=== PATIENT | male | born 1975 | race Hispanic/Latino ===

== ENCOUNTER 2018-12-20 13:01 | Emergency (ER) | payer OTHER ==
[2018-12-20] MEDS ORDERED: NA CHLORIDE 0.9% 1,000 ML ONE (14:39)
[2018-12-20 14:44] LABS: Absolute Lymphocytes (CBC) 1.7 K/uL (0.7-4.9); Basophils % 0.7 % (0-1.3); Hematocrit 36.5 % (39.6-49.0); Lymphocytes % 18.7 % (15.3-44.8); MPV 10.4 fL (7.6-11.3); RBC Red Blood Cell Count 4.12 M/uL (4.33-5.43)
[2018-12-20 14:47] LABS: ALT/SGPT 21 U/L (12-78); AST/SGOT 16 U/L (15-37); Albumin 3.4 g/dL (3.4-5.0); Alkaline Phosphatase 71 U/L (45-117); BUN Blood Urea Nitrogen 16 mg/dL (7-18); Bicarbonate 28 mmol/L (21-32); Bilirubin Direct 0.1 mg/dL (0-0.2); Bilirubin Total 0.5 mg/dL (0.2-1.0); Glucose Level 188 mg/dL (74-106); Magnesium 1.6 mg/dL (1.8-2.4); NT PRO-BNP 29 pg/mL (<125); Potassium 3.8 mmol/L (3.5-5.1); Protein, Total 7.2 g/dL (6.4-8.2); Sodium Level 136 mmol/L (136-145); Troponin (Emerg Dept Use Only) < 0.02 ng/mL (0.0-0.045)
--- NOTE | 2018-12-20 15:07 | EKG ---
Test Date: 2018-12-20 Test Time: 14:32:20 Counter Help: CRUZ MEASUREMENT RESULTS: Intervals: Rate: 77 UT: 140 QRSD: 86 QT: 398 QTc: 450 [place]: P: 56 UT: 140 QRS: 56 T: 23 INTERPRETIVE STATEMENTS: Normal sinus rhythm Normal ECG Compared to ECG 11/03/2003 22:35:00 No significant changes Electronically Signed On 12-20-18 15:06:46 DOUBLE ENDING MACHINE OPERATOR by Vinicius Singh
--- NOTE | 2018-12-20 15:08 | ER ---
Nurse's Notes [facility] Name: Ivan John Age: 43 yrs Sex: Male : 1975 Arrival Date: 12/20/2018 Time: 13:05 Bed 24 Private MD: Ronnie Melo R Diagnosis: Adverse effect of caffeine;Essential (primary) hypertension;Hypomagnesemia Presentation: 12/20 13:07 Presenting complaint: Intermittent dizziness, anxiety, nausea, and SOB x 2 hrs. Pt is 1 hb week s/p hernia repair by Dr. Castellanos. Transition of care: patient was not received from another setting of care. Onset of symptoms was December 20, 2018. Risk Assessment: Do you want to hurt yourself or someone else? Patient reports no desire to harm self or others. Care prior to arrival: None. 13:07 Method Of Arrival: Ambulatory hb 13:07 Acuity: TREVOR 3 hb 13:28 Initial Sepsis Screen: Does the patient meet any 2 criteria? No. Patient's initial ca1 sepsis screen is negative. Does the patient have a suspected source of infection? No. Patient's initial sepsis screen is negative. Historical: - Allergies: 13:11 No Known Allergies; hb - Home Meds: 13:11 metformin 1,000 mg Oral tab 1 tab 2 times per day [Active]; lisinopril 40 mg Oral tab 1 hb tab once daily [Active]; amlodipine 5 mg tab 1 tab once daily [Active]; glimepiride 1 mg Oral tab 1 tab once daily [Active]; atorvastatin 10 mg oral tab 1 tab once daily [Active]; Flomax 0.4 mg Oral cp24 1 cap once daily [Active]; - PMHx: 13:11 Hypertension; hb - PSHx: 13:11 Hernia repair; hb - Immunization history:: Adult Immunizations up to date. - Social history:: Smoking status: Patient/guardian denies using tobacco. - Ebola Screening: : No symptoms or risks identified at this time. Screenin:19 Abuse screen: Denies threats or abuse. Denies injuries from another. Nutritional ca1 screening: No deficits noted. Tuberculosis screening: No symptoms or risk factors identified. Fall Risk IV access (20 points). Assessment: 13:19 General: Appears in no apparent distress. comfortable, Behavior is calm, cooperative, ca1 appropriate for age. Pain: Denies pain. Neuro: Level of Consciousness is awake, alert, obeys commands, Oriented to person, place, time, situation, Appropriate for age Valver are equal bilaterally Moves all extremities. Gait is steady, Speech is normal, Facial symmetry appears normal, Reports dizziness, since 2 hours ago. Neuro: Reports a syncopal episode. Cardiovascular: Heart tones S1 S2 present Capillary refill < 3 seconds Patient's skin is warm and dry. Rhythm is sinus rhythm. Respiratory: Reports shortness of breath at rest Airway is patent Respiratory effort is even, unlabored, Respiratory pattern is regular, symmetrical, Breath sounds are clear bilaterally. Denies cough. GI: Abdomen is round non-distended, dressing on umbilical area. Pt reports to have had hernia repair last . Dressing is dry and intact. Pt denies redness, swelling, tenderness or drainage on incision site. Bowel sounds present X 4 quads. Abd is soft and non tender X 4 quads. : No deficits noted. No signs and/or symptoms were reported regarding the genitourinary system. EENT: No deficits noted. No signs and/or symptoms were reported regarding the EENT system. Derm: Skin is intact, is healthy with good turgor, Skin is pink, warm \T\ dry. Musculoskeletal: Circulation, motion, and sensation intact. Capillary refill < 3 seconds, Range of motion: intact in all extremities. 14:20 Reassessment: Patient appears in no apparent distress at this time. Patient and/or ca1 family updated on plan of care and expected duration. Pain level reassessed. Patient is alert, oriented x 3, equal unlabored respirations, skin warm/dry/pink. 15:45 Reassessment: Patient appears in no apparent distress at this time. [place] and ca1 [place]ice served with medication. Tolerated well. Vital Signs: 13:08 BP 204 / 92; Pulse 92; Resp 20; Temp 97.9; Pulse Ox 100% on R/A; Weight 98.88 kg; hb Height 5 ft. 4 in. (162.56 cm); Pain 0/10; 13:19 BP 152 / 74; Pulse 84; Resp 19; Pulse Ox 100% on R/A; ca1 14:20 BP 138 / 77; Pulse 85; Resp 17 S; Pulse Ox 99% on R/A; ca1 15:30 BP 134 / 79; Pulse 86; Resp 17 S; Pulse Ox 100% on R/A; ca1 13:08 Body Mass Index 37.42 (98.88 kg, 162.56 cm) hb ED Course: 13:05 Patient arrived in ED. mr 13:06 Ronnie Melo MD is Private Physician. mr 13:08 Triage completed. hb 13:08 Arm band placed on. hb 13:14 Rhiannon Muro, PRASHANTH is Primary Nurse. ca1 13:18 Cory Tavera PA is PHCP. jr8 13:18 Travon Nelson MD is Attending Physician. jr8 13:19 Patient has correct armband on for positive identification. Placed in gown. Bed in low ca1 position. Call light in reach. Side rails up X 1. traffic engineering director on. Pulse ox on. NIBP on. 13:19 No provider procedures requiring assistance completed. ca1 13:28 Inserted saline lock: 20 gauge in right antecubital area, using aseptic technique. ca1 Blood collected. 14:38 EKG done, by public health technician. reviewed by Cory JANE. 3 15:07 Ronnie Melo MD is Referral Physician. jr8 15:55 IV discontinued, intact, bleeding controlled, No redness/swelling at site. Pressure ca1 dressing applied. Administered Medications: 14:40 Drug: NS 0.9% 1000 ml Route: IV; Rate: 1000 ml; Site: right antecubital; ca1 15:40 Follow up: Response: No adverse reaction; IV Status: Completed infusion; IV Intake: ca1 1000ml 15:50 Drug: Magnesium Oxide 400 mg Route: PO; ca1 15:58 Follow up: Response: Medication administered at discharge. ca1 Intake: 15:40 IV: 1000ml; Total: 1000ml. ca1 Outcome: 15:07 Discharge ordered by . jr8 15:55 Discharged to home ambulatory, with significant other. ca1 15:55 Condition: stable 15:55 Discharge instructions given to patient, Instructed on discharge instructions, follow up and referral plans. Demonstrated understanding of instructions, follow-up care. 16:01 Patient left the ED. ca1 Signatures: Aviva Nelson mr Cory Tavera PA PA jr8 Aaliyah Stauffer RN RN Erin Santana 3 Rhiannon Muro RN RN ca1 Corrections: (The following items were deleted from the chart) 13:15 13:07 Presenting complaint: Intermittent dizziness and SOB x 2 hrs. Also c/o nausea and hb anxiety. hb 13:29 13:19 Respiratory: Reports shortness of breath at rest Airway is patent Respiratory ca1 effort is even, unlabored, Respiratory pattern is regular, symmetrical, Breath sounds are clear bilaterally. ca1
--- NOTE | 2018-12-20 15:09 | EDPHYS ---
Physician Documentation [facility] Name: Ivan John Age: 43 yrs Sex: Male : 1975 Arrival Date: 12/20/2018 Time: 13:05 Bed 24 Private MD: Ronnie Melo R ED Physician Travon Nelson HPI: 12/20 14:08 This 43 yrs old Male presents to ER via Ambulatory with complaints of jr8 Dizziness, Nausea. 14:08 The patient presents with dizziness. Onset: The symptoms/episode began/occurred jr8 acutely, today. Context: occurred at work, occurred while the patient was at rest. Modifying factors: The symptoms are alleviated by nothing, the symptoms are aggravated by nothing. Associated signs and symptoms: Pertinent positives: nausea, palpitations. Severity of symptoms: At their worst the symptoms were moderate in the emergency department the symptoms have improved moderately. Patient's baseline: Neuro: alert and fully oriented, Motor: no deficits, Ambulation: walks without assistance, Speech: normal. The patient has not experienced similar symptoms in the past. The patient has not recently seen a physician. Patient stated that he normally does not drink a lot of coffee. Since it has been cold outside has been drinking more. Stated that today had 3 twenty oz cups. While in meeting started to feel anxious, dizzy, and nauseated . Historical: - Allergies: 13:11 No Known Allergies; hb - Home Meds: 13:11 metformin 1,000 mg Oral tab 1 tab 2 times per day [Active]; lisinopril 40 mg Oral tab 1 hb tab once daily [Active]; amlodipine 5 mg tab 1 tab once daily [Active]; glimepiride 1 mg Oral tab 1 tab once daily [Active]; atorvastatin 10 mg oral tab 1 tab once daily [Active]; Flomax 0.4 mg Oral cp24 1 cap once daily [Active]; - PMHx: 13:11 Hypertension; hb - PSHx: 13:11 Hernia repair; hb - Immunization history:: Adult Immunizations up to date. - Social history:: Smoking status: Patient/guardian denies using tobacco. - Ebola Screening: : No symptoms or risks identified at this time. ROS: 14:08 Eyes: Negative for injury, pain, redness, and discharge, ENT: Negative for injury, jr8 pain, and discharge, Neck: Negative for injury, pain, and swelling, Respiratory: Negative for shortness of breath, cough, wheezing, and pleuritic chest pain, Back: Negative for injury and pain, MS/Extremity: Negative for injury and deformity, Skin: Negative for injury, rash, and discoloration. 14:08 Cardiovascular: Positive for palpitations, Negative for chest pain, edema, orthopnea, paroxysmal nocturnal dyspnea. 14:08 Abdomen/GI: Positive for nausea, Negative for abdominal pain, vomiting, diarrhea, constipation, abdominal cramps, abdominal distension. 14:08 Neuro: Positive for dizziness, Negative for altered mental status, gait disturbance, headache, hearing loss, loss of consciousness, numbness, seizure activity, speech changes, syncope, near syncope, tingling, tinnitus, tremor, visual changes, weakness. Exam: 14:08 Eyes: Pupils equal round and reactive to light, extra-ocular motions intact. Lids and jr8 lashes normal. Conjunctiva and sclera are non-icteric and not injected. Cornea within normal limits. Periorbital areas with no swelling, redness, or edema. ENT: Nares patent. No nasal discharge, no septal abnormalities noted. Tympanic membranes are normal and external auditory canals are clear. Oropharynx with no redness, swelling, or masses, exudates, or evidence of obstruction, uvula midline. Mucous membranes moist. Neck: Trachea midline, no thyromegaly or masses palpated, and no cervical lymphadenopathy. Supple, full range of motion without nuchal rigidity, or vertebral point tenderness. No Meningismus. Cardiovascular: Regular rate and rhythm with a normal S1 and S2. No gallops, murmurs, or rubs. Normal PMI, no JVD. No pulse deficits. Respiratory: Lungs have equal breath sounds bilaterally, clear to auscultation and percussion. No rales, rhonchi or wheezes noted. No increased work of breathing, no retractions or nasal flaring. Abdomen/GI: Soft, non-tender, with normal bowel sounds. No distension or tympany. No guarding or rebound. No evidence of tenderness throughout. Back: No spinal tenderness. No costovertebral tenderness. Full range of motion. Skin: Warm, dry with normal turgor. Normal color with no rashes, no lesions, and no evidence of cellulitis. MS/ Extremity: Pulses equal, no cyanosis. Neurovascular intact. Full, normal range of motion. Neuro: Awake and alert, GCS 15, oriented to person, place, time, and situation. Cranial nerves II-XII grossly intact. Motor strength 5/5 in all extremities. Sensory grossly intact. Cerebellar exam normal. Normal gait. Vital Signs: 13:08 BP 204 / 92; Pulse 92; Resp 20; Temp 97.9; Pulse Ox 100% on R/A; Weight 98.88 kg; hb Height 5 ft. 4 in. (162.56 cm); Pain 0/10; 13:19 BP 152 / 74; Pulse 84; Resp 19; Pulse Ox 100% on R/A; ca1 14:20 BP 138 / 77; Pulse 85; Resp 17 S; Pulse Ox 99% on R/A; ca1 15:30 BP 134 / 79; Pulse 86; Resp 17 S; Pulse Ox 100% on R/A; ca1 13:08 Body Mass Index 37.42 (98.88 kg, 162.56 cm) hb MDM: 13:48 Patient medically screened. [facility] 15:06 Data reviewed: vital signs, nurses notes, lab test result(s), EKG. Data interpreted: [facility] Pulse oximetry: on room air is 99 %. Interpretation: normal. Counseling: I had a detailed discussion with the patient and/or guardian regarding: the historical points, exam findings, and any diagnostic results supporting the discharge/admit diagnosis, lab results, the need for outpatient follow up, a family practitioner, to return to the emergency department if symptoms worsen or persist or if there are any questions or concerns that arise at home. Response to treatment: the patient's symptoms have resolved after treatment. 12/20 14:06 Order name: Basic Metabolic Panel; Complete Time: 15: [facility] 12/20 14:06 Order name: CBC with Diff; Complete Time: 15: [facility] 12/20 14:06 Order name: LFT's; Complete Time: 15: [facility] 12/20 14:06 Order name: Magnesium; Complete Time: 15: 12/20 14:06 Order name: NT PRO-BNP; Complete Time: 15:06 [facility] 12/20 14:06 Order name: Troponin (emerg Dept Use Only); Complete Time: 15: [facility] 12/20 14:06 Order name: EKG; Complete Time: 14:07 8 12/20 14:06 Order name: Cardiac monitoring; Complete Time: 14:17 12/20 14:06 Order name: EKG - Nurse/Tech; Complete Time: 14:40 12/20 14:06 Order name: IV Saline Lock; Complete Time: 14:20 12/20 14:06 Order name: Labs collected and sent; Complete Time: 14:20 12/20 14:06 Order name: O2 Per Protocol; Complete Time: 14:20 12/20 14:06 Order name: O2 Sat Monitoring; Complete Time: 14:20 Administered Medications: 14:40 Drug: NS 0.9% 1000 ml Route: IV; Rate: 1000 ml; Site: right antecubital; ca1 15:40 Follow up: Response: No adverse reaction; IV Status: Completed infusion; IV Intake: ca1 1000ml 15:50 Drug: Magnesium Oxide 400 mg Route: PO; ca1 15:58 Follow up: Response: Medication administered at discharge. ca1 Disposition: 12/20/18 15:07 Discharged to Home. Impression: Adverse effect of caffeine, Essential (primary) hypertension, Hypomagnesemia. - Condition is Stable. - Discharge Instructions: Hypertension, Hypomagnesemia. - Medication Reconciliation Form, Thank You Letter, Antibiotic Education, Prescription Opioid Use form. - Follow up: Ronnie Melo MD; When: 2 - 3 days; Reason: Recheck today's complaints, Continuance of care, Re-evaluation by your physician. - Problem is new. - Symptoms have improved. Addendum: 12/23/2018 19:31 Co-signature as Attending Physician, Travon Nelson MD. r n Signatures: Dispatcher [employer] Travon Nelson MD MD rn Roszak, Josh, PA PA jr8 Aaliyah Stauffer RN RN Rhiannon Muro RN RN ca1 Corrections: (The following items were deleted from the chart) 12/20 16:01 15:07 12/20/2018 15:07 Discharged to Home. Impression: Adverse effect of caffeine; ca1 Essential (primary) hypertension; Hypomagnesemia. Condition is Stable. Forms are Medication Reconciliation Form, Thank You Letter, Antibiotic Education, Prescription Opioid Use. Follow up: Ronnie Melo; When: 2 - 3 days; Reason: Recheck today's complaints, Continuance of care, Re-evaluation by your physician. Problem is new. Symptoms have improved. jr8
[2018-12-20] MEDS ORDERED: MAGNESIUM OXIDE 400 MG TAB ONE (15:45)
[2018-12-20 16:12] VITALS: TEMP 97.9
[2018-12-20 16:16] VITALS: BP 134/79; O2SAT 100
== END 2018-12-20 16:01 | disposition home or self-care (01) ==
LOC: ER 13:01
DX: I10 Essential (primary) hypertension (principal); E83.42 Hypomagnesemia; T78.1XXA Other adverse food reactions, not elsewhere classified, initial encounter; X58.XXXA Exposure to other specified factors, initial encounter
CPT/HCPCS: 93005; 85025; 80048; 36415; 83735; 80076; 84484; 83880; 96360; 99284; J7030